=== PATIENT | female | born 1945 | race Two or more races ===

== ENCOUNTER 2018-08-22 09:48 | Outpatient (CLI) | payer OTHER | END 2018-08-22 09:56 | disposition home or self-care (01) | LOC: RX STUDY 09:48 | DX: K21.9 Gastro-esophageal reflux disease without esophagitis (principal); R13.19 Other dysphagia ==

== ENCOUNTER 2019-07-04 11:35 | Outpatient (CLI) | payer OTHER | END 2019-07-04 11:37 | disposition home or self-care (01) | LOC: RAD 11:35 | DX: M25.511 Pain in right shoulder (principal); E11.69 Type 2 diabetes mellitus with other specified complication; M54.2 Cervicalgia; M54.5 Low back pain ==

== ENCOUNTER → 2019-09-26 | Outpatient (CLI) | payer OTHER | END | disposition home or self-care (01) | LOC: NUCLEAR 07:53 | DX: M15.0 Primary generalized (osteo)arthritis (principal) | CPT/HCPCS: 78306; A9503 ==

== ENCOUNTER → 2021-07-22 | Outpatient (CLI) | payer OTHER | END | disposition home or self-care (01) | LOC: MRI 09:15 | PROVIDERS: ATTEND Internal Medicine | DX: M51.37 Other intervertebral disc degeneration, lumbosacral region (principal); M54.5 Low back pain; Q61.01 Congenital single renal cyst | CPT/HCPCS: 72148 ==